=== PATIENT | female | born 1980 | race Two or more races ===

== ENCOUNTER 2021-08-10 00:21 | Emergency (ER) | payer OTHER ==
[~2021-08-10] VITALS: Ht 160 cm; Wt 65.8 kg
[2021-08-10] MEDS ORDERED: CEPHALEXIN500 MG PO (05:16)
[2021-08-10] MEDS ORDERED: KETO10TA2 PO (05:16)
== END 2021-08-10 05:22 ==
LOC: ER 00:21
DX: S01.81XA Laceration without foreign body of other part of head, initial encounter (principal); W19.XXXA Unspecified fall, initial encounter; Y92.89 Other specified places as the place of occurrence of the external cause

== ENCOUNTER 2022-03-14 18:41 | Emergency (ER) | payer OTHER ==
[~2022-03-14] VITALS: Ht 160 cm; Wt 68.0 kg
[~2022-03-14 18:41] MED LIST: CEPHALEXIN500 MG PO; KETO10TA2 PO
[2022-03-14] MEDS ORDERED: ZITHROMAX200 MG PO (22:44)
== END 2022-03-14 22:57 | disposition home or self-care (01) ==
LOC: ER 18:41
DX: A49.3 Mycoplasma infection, unspecified site (principal); R51.9 Headache, unspecified